=== PATIENT | female | born 1980 | race Caucasian/White ===

== ENCOUNTER → 2019-08-25 09:37 | Outpatient (CLI) | payer OTHER, SELFPAY ==
--- NOTE | 2019-08-25 | DI.US.S_ITS ---
LIMITED ULTRASOUND OF LEFT BREAST: 08/25/2019 CLINICAL: Inverted left nipple x 3 yrs with exception of /breast feeding time during that 3 yrs. Comparison is made [facility]: [facility] of the left breast retroareolar was performed on the area of interest. No discrete cystic or solid mass lesion identified in the retroareolar region. No dilated ducts identified. IMPRESSION: NEGATIVE There is no sonographic evidence of malignancy. There is no abnormality seen in the left breast in the sub-areolar region to correspond with the nipple inversion, however, clinical followup is recommended. A 1 year screening mammogram is recommended. This exam was interpreted at Station ID: [id number]. Electronically Signed By: Harpreet Morton M.D. [email or web address]/:08/25/2019 10:40:45 letter sent: Clinical Evaluation Ultrasound BI-RADS: 1 Negative
--- NOTE | 2019-08-25 | DI.MG.S_ITS ---
BILATERAL DIGITAL DIAGNOSTIC MAMMOGRAM 3D/2D: 08/25/2019 CLINICAL: Baseline exam. Inverted left nipple. No prior exams were available for comparison. The tissue of both breasts is extremely dense, which lowers the sensitivity of mammography. No significant masses, calcifications, or other findings are seen in either breast. There is partial inversion of the left nipple noted. IMPRESSION: INCOMPLETE: NEEDS ADDITIONAL IMAGING EVALUATION There is no abnormality seen in the left breast in the sub-areolar depth to correspond with the histoy of left nipple inversion, however, ultrasound is recommended. This exam was interpreted at Station ID: [id number]. NOTE: For mammograms, a report in lay terms will be sent to the patient. Approximately 15% of breast malignancies will not be visualized mammographically. In the management of a palpable breast mass, a negative mammogram must not discourage biopsy of a clinically suspicious lesion. Electronically Signed By: Harpreet Morton M.D. ddp/:08/25/2019 10:30:51 ACR BI-RADS Category 0: Incomplete [id number]
== END ==
PROVIDERS: PCP Family Medicine; Referring Provider Family Medicine; Visit Provider Family Medicine
DX: R92.8 Other abnormal and inconclusive findings on diagnostic imaging of breast (principal); N64.59 Other signs and symptoms in breast
CPT/HCPCS: 76642; 77066; G0279

== ENCOUNTER 2020-07-30 10:15 | Outpatient (RCR) | payer OTHER, SELFPAY ==
--- NOTE | 2020-07-02 14:52 | PT.OIE ---
Current Diagnoses Sacroiliitis, not elsewhere classified (07/02/20) Low back pain (07/02/20) Other muscle spasm (07/02/20) Visit Care Team Role Provider Type Judy Robert MD Attending Provider Physician Primary Care Provider Referring Provider Specialty: Family Practice Address: [address] [place] [address], [facility] [place], [address] Email: [email or web address] Therapy Initial Evaluation PT-OP-A Visit Information Start: 07/02/20 07:32 Freq: Status: Active Protocol: Document 07/02/20 12:45 AMB (Rec: 07/03/20 10:13 AMB [email or web address]) Out-Patient Physical Therapy Visit Information Visit Information Visit Type Initial Evaluation Visit Start Time 12:45 Visit Stop Time 13:35 Total Visit Minutes 50 Visit Number 1 PT-OP-B Current Condition Start: 07/02/20 07:32 Freq: Status: Active Protocol: Document 07/02/20 12:45 AMB (Rec: 07/02/20 13:11 AMB [id number]) Current Condition History of Current Condition Onset Date 2008 Current Complaints R>L low back pain into hip History of Current Condition Pain started with 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 When I have a big flare up worse on the right. , worse pain after the of her son in her low back, fine back pain during , but worse post . Sitting seems to really flare it up. Carrying around the baby did increase the pain. Mostly right sided, feels tension in right neck/ shoulder. Recently has had some numbness tingling in the right arm leg. Stretching feels good in the moment, but then it seems to worsen it. Feels like has been in a flare up for the last 9 months, but not currently painful when seated during exam. 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 Yoga has seemed to help. Walking at a decent speed also helps. Have tried massage and chiropractor and neither seemed to fix it. Treatment Goals Patient/Caregiver Goals Know what to do when has a pain flare. What can I do to avoid a pain flare. Prior Functional Status Baseline Function- ADL's Independent Baseline Function- Mobility Independent Current Functional Impairments (Reported) Functional Limitations- ADL's Avoids sitting, has to be very aware of how she lifts the kids Personal Factors Other Personal Factors That May Effect anxiety, asthma, headaches Therapy/Recovery PT-OP-C Subjective Start: 07/02/20 07:32 Freq: Status: Active Protocol: Document 07/02/20 12:45 AMB (Rec: 07/03/20 10:13 AMB [email or web address]) OP-PT Pain Assessment Pain Assessment Grid Paper Pain Assessment Grid Completed Yes Location Lower Back Pain Location Details R>L post hip Intensity 9 Scale Used Numeric (0 - 10) Variations/Patterns 0-9 depending on flare PT-OP-J Posture/Palpation/Skin Start: 07/02/20 07:32 Freq: Status: Active Protocol: Document 07/02/20 12:45 AMB (Rec: 07/03/20 10:13 AMB [email or web address]) Posture Evaluation Comments Posture Comments mildly increased lumbar lordosis Palpation Assessment Location One Palpation Location low back Palpation Details stiffness and pain with PAs T/ L junction and high lumbar spine, tenderness into pirfiormis, glut med but does not radiate PT-OP-K Range of Motion Start: 07/02/20 07:32 Freq: Status: Active Protocol: Document 07/02/20 12:45 AMB (Rec: 07/03/20 10:13 AMB [email or web address]) Lumbar Spine Range of Motion Lumbar Spine Active Degrees Testing Position Standing Flexion 50 Extension 20 Lateral Flexion Left 25 Lateral Flexion Right 25 Comments increased pain with extension, flexion feels good Hip Goniometric Range of Motion Hip Right Active Testing Position Supine Flexion w/Knee Flexed 130 PT-OP-M Strength Start: 07/02/20 07:32 Freq: Status: Active Protocol: Document 07/02/20 12:45 AMB (Rec: 07/05/20 08:14 AMB [email or web address]) Hip Strength Hip Manual Muscle Testing Left Flexion (L2) 5 Normal Extension (S1) 4 Good Abduction 5 Normal Adduction 5 Normal Right Flexion (L2) 5 Normal Extension (S1) 4 Good Abduction 5 Normal Adduction 5 Normal PT-OP-T Assessment and Plan Start: 07/02/20 07:32 Freq: Status: Active Protocol: Document 07/02/20 12:45 AMB (Rec: 07/05/20 08:14 AMB [email or web address]) Physical Therapy Assessment Rehab Potential Rehabilitation Potential Good Evaluation Complexity Number of Personal Factors/Comorbidities 1-2 Number of Body Systems Impaired 3 Clinical Presentation at Evaluation Evolving Impairments Impairments Functional Activities,ROM, Strength Goals Three Impairment Pain Short Term Goal (STG) Bree will sit for 30 minutes with pain of 4/10. STG Duration 6 weeks Mcc Goal (LTG) Bree will lift and carry her youngest child with pain of 4/10. LTG Duration 12 weeks Two Impairment Strength Short Term Goal (STG) Bree will improve her hip strength to 5/5 bilaterally in all planes. STG Duration 6 weeks Health Claims Examiner Goal (LTG) Bree will perform a full squat without an increase in pain. LTG Duration 12 weeks One Impairment ROM Short Term Goal (STG) Bree will improve her extension AROM to 25 degrees without an increase in baseline pain. STG Duration 6 weeks Assessment Summary Assessment Bree attends physical therapy with 11 year history of low back pain that radiates R>L into hips, worse with sitting. She was fairly hyperverbal during assessment, so getting physical details was challenging, but we will look further into her SI joint and piriformis mobility, and lumbar stability. She does have pain with lumbar extension. She also had a diastasis recti, which likely is not causing her pain, but could be contributing to it. Her pain is quite variable, and she has had a difficult time finding a pattern to it, but physical therapy will work on that as well, so that she can sit and avoid pain flares. Physical Therapy Plan Frequency and Duration Frequency of Treatment 1x/Week Duration of Treatment 12 weeks Plan of Care Start Date 07/02/20 Plan of Care End Date 09/24/20 Therapeutic Interventions Therapeutic Interventions Gait Training,Home Exercise Program,Joint Mobilizations, Manual Therapy,Neuromuscular Re-education,Self-Care/Home Management,Therapeutic Activities,Therapeutic Exercises Modalities Cold Pack/Ice Massage,Electric Stimulation,Hot Packs, Traction- Mechanical, Ultrasound Next Visit Focus/Plan Next Note Type Treatment Note Next Visit Plan Gluteal strengthening, review stretching program
--- NOTE | 2020-07-02 14:56 | PT.OPPOC ---
Physical, Occupational & Speech Therapy At [facility] Current Diagnoses Sacroiliitis, not elsewhere classified (07/02/20) Low back pain (07/02/20) Other muscle spasm (07/02/20) Visit Care Team Role Provider Type Judy Robert MD Attending Provider Physician Primary Care Provider Referring Provider Specialty: [facility] Address: [address] [place] [address], [facility] [place], [place], [facility] Email: [email or web address] Plan Of Care PT-OP-T Assessment and Plan Start: 07/02/20 07:32 Freq: Status: Active Protocol: Document 07/02/20 12:45 AMB (Rec: 07/05/20 08:14 AMB [email or web address]) Physical Therapy Assessment Rehab Potential Rehabilitation Potential Good Evaluation Complexity Number of Personal Factors/Comorbidities 1-2 Number of Body Systems Impaired 3 Clinical Presentation at Evaluation Evolving Impairments Impairments Functional Activities,ROM, Strength Goals Three Impairment Pain Short Term Goal (STG) Bree will sit for 30 minutes with pain of 4/10. STG Duration 6 weeks Manager Knowledge Goal (LTG) Bree will lift and carry her youngest child with pain of 4/10. LTG Duration 12 weeks Two Impairment Strength Short Term Goal (STG) Bree will improve her hip strength to 5/5 bilaterally in all planes. STG Duration 6 weeks Group Home Goal (LTG) Bree will perform a full squat without an increase in pain. LTG Duration 12 weeks One Impairment ROM Short Term Goal (STG) Bree will improve her extension AROM to 25 degrees without an increase in baseline pain. STG Duration 6 weeks Assessment Summary Assessment Bree attends physical therapy with 11 year history of low back pain that radiates R>L into hips, worse with sitting. She was fairly hyperverbal during assessment, so getting physical details was challenging, but we will look further into her SI joint and piriformis mobility, and lumbar stability. She does have pain with lumbar extension. She also had a diastasis recti, which likely is not causing her pain, but could be contributing to it. Her pain is quite variable, and she has had a difficult time finding a pattern to it, but physical therapy will work on that as well, so that she can sit and avoid pain flares. Physical Therapy Plan Frequency and Duration Frequency of Treatment 1x/Week Duration of Treatment 12 weeks Plan of Care Start Date 07/02/20 Plan of Care End Date 09/24/20 Therapeutic Interventions Therapeutic Interventions Gait Training,Home Exercise Program,Joint Mobilizations, Manual Therapy,Neuromuscular Re-education,Self-Care/Home Management,Therapeutic Activities,Therapeutic Exercises Modalities Cold Pack/Ice Massage,Electric Stimulation,Hot Packs, Traction- Mechanical, Ultrasound Next Visit Focus/Plan Next Note Type Treatment Note Next Visit Plan Gluteal strengthening, review stretching program Plan of Care Dates Plan of Care Start Date 07/02/20 Plan of Care End Date 09/24/20 Electronically Signed by: Dayanna Woods, PT 07/05/20 2005 Please Sign and Return: I have reviewed this Plan of Care and certify that the skilled therapy services above are required to meet the patient?s needs. Physician Signature Date Printed Name and Credentials Clinical Instructor Signature Printed Name and Credentials
--- NOTE | 2020-07-09 16:00 | PT.OTN ---
Current Diagnoses Sacroiliitis, not elsewhere classified (07/09/20) Low back pain (07/09/20) Other muscle spasm (07/09/20) Physical Therapy Treatment Note PT-OP-A Visit Information Start: 07/02/20 07:32 Freq: Status: Active Protocol: Document 07/09/20 13:30 AMB (Rec: 07/09/20 14:30 AMB [id number]) Out-Patient Physical Therapy Visit Information Visit Information Visit Type Treatment Note Visit Start Time 13:30 Visit Stop Time 14:15 Total Visit Minutes 45 Visit Number 2 PT-OP-B Current Condition Start: 07/02/20 07:32 Freq: Status: Active Protocol: Document 07/02/20 12:45 AMB (Rec: 07/02/20 13:11 AMB [id number]) Current Condition History of Current Condition Onset Date 2008 Current Complaints R>L low back pain into hip History of Current Condition Pain started with 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 When I have a big flare up worse on the right. , worse pain after the of her son in her low back, fine back pain during , but worse post . Sitting seems to really flare it up. Carrying around the baby did increase the pain. Mostly right sided, feels tension in right neck/ shoulder. Recently has had some numbness tingling in the right arm leg. Stretching feels good in the moment, but then it seems to worsen it. Feels like has been in a flare up for the last 9 months, but not currently painful when seated during exam. 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 Yoga has seemed to help. Walking at a decent speed also helps. Have tried massage and chiropractor and neither seemed to fix it. Treatment Goals Patient/Caregiver Goals Know what to do when has a pain flare. What can I do to avoid a pain flare. Prior Functional Status Baseline Function- ADL's Independent Baseline Function- Mobility Independent Current Functional Impairments (Reported) Functional Limitations- ADL's Avoids sitting, has to be very aware of how she lifts the kids Personal Factors Other Personal Factors That May Effect anxiety, asthma, headaches Therapy/Recovery PT-OP-C Subjective Start: 07/02/20 07:32 Freq: Status: Active Protocol: Document 07/09/20 13:30 AMB (Rec: 07/09/20 14:30 AMB [id number]) OP-PT Subjective Patient Comments Patient Comments Pt is feeling her R paraspinals more than her piriformis today. PT-OP-J Posture/Palpation/Skin Start: 07/02/20 07:32 Freq: Status: Active Protocol: Document 07/02/20 12:45 AMB (Rec: 07/03/20 10:13 AMB [email or web address]) Posture Evaluation Comments Posture Comments mildly increased lumbar lordosis Palpation Assessment Location One Palpation Location low back Palpation Details stiffness and pain with PAs T/ L junction and high lumbar spine, tenderness into pirfiormis, glut med but does not radiate PT-OP-K Range of Motion Start: 07/02/20 07:32 Freq: Status: Active Protocol: Document 07/02/20 12:45 AMB (Rec: 07/03/20 10:13 AMB [email or web address]) Lumbar Spine Range of Motion Lumbar Spine Active Degrees Testing Position Standing Flexion 50 Extension 20 Lateral Flexion Left 25 Lateral Flexion Right 25 Comments increased pain with extension, flexion feels good Hip Goniometric Range of Motion Hip Right Active Testing Position Supine Flexion w/Knee Flexed 130 PT-OP-M Strength Start: 07/02/20 07:32 Freq: Status: Active Protocol: Document 07/02/20 12:45 AMB (Rec: 07/05/20 08:14 AMB [email or web address]) Hip Strength Hip Manual Muscle Testing Left Flexion (L2) 5 Normal Extension (S1) 4 Good Abduction 5 Normal Adduction 5 Normal Right Flexion (L2) 5 Normal Extension (S1) 4 Good Abduction 5 Normal Adduction 5 Normal PT-OP-Q Treatments Start: 07/02/20 07:32 Freq: Status: Active Protocol: Document 07/09/20 13:30 AMB (Rec: 07/10/20 09:36 AMB [email or web address]) Therapeutic Exercises Supine Exercises 1 Supine Exercise Name TA engagement Comments hooklying 2 Supine Exercise Name piriformis stretch Comments 30 Sitting Exercises 1 Sitting Exercise Name QL stretch Reps/Minutes 30 Other Exercises 1 Other Exercise Name quadruped hip ER and extension Comments 2x10 Manual Therapy Treatment Taping 1 Body Location abdomen Treatment Focus diastasis Type of Tape Kinesio Tape PT-OP-T Assessment and Plan Start: 07/02/20 07:32 Freq: Status: Active Protocol: Document 07/10/20 09:36 AMB (Rec: 07/10/20 09:38 AMB [email or web address]) Physical Therapy Assessment Assessment Summary Assessment Bree is already doing a lot of exercises, worked on form with them, avoiding excessive lumbarlordosis and anterior pelvic tilt. Encouraged consistency as she has a tendnency to do a lot of exercises, and then none. Physical Therapy Plan Next Visit Focus/Plan Next Note Type Treatment Note Next Visit Plan Review diastasis taping and see if it changed R paraspinal sx
--- NOTE | 2020-07-14 13:22 | PT.OTN ---
Current Diagnoses Sacroiliitis, not elsewhere classified (07/14/20) Low back pain (07/14/20) Other muscle spasm (07/14/20) Physical Therapy Treatment Note PT-OP-A Visit Information Start: 07/02/20 07:32 Freq: Status: Active Protocol: Document 07/14/20 07:35 AMB (Rec: 07/14/20 08:17 AMB [id number]) Out-Patient Physical Therapy Visit Information Visit Information Visit Type Treatment Note Visit Start Time 07:30 Visit Stop Time 08:15 Total Visit Minutes 45 Visit Number 1 PT-OP-B Current Condition Start: 07/02/20 07:32 Freq: Status: Active Protocol: Document 07/02/20 12:45 AMB (Rec: 07/02/20 13:11 AMB [id number]) Current Condition History of Current Condition Onset Date 2008 Current Complaints R>L low back pain into hip History of Current Condition Pain started with 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 When I have a big flare up worse on the right. , worse pain after the of her son in her low back, fine back pain during , but worse post . Sitting seems to really flare it up. Carrying around the baby did increase the pain. Mostly right sided, feels tension in right neck/ shoulder. Recently has had some numbness tingling in the right arm leg. Stretching feels good in the moment, but then it seems to worsen it. Feels like has been in a flare up for the last 9 months, but not currently painful when seated during exam. 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 Yoga has seemed to help. Walking at a decent speed also helps. Have tried massage and chiropractor and neither seemed to fix it. Treatment Goals Patient/Caregiver Goals Know what to do when has a pain flare. What can I do to avoid a pain flare. Prior Functional Status Baseline Function- ADL's Independent Baseline Function- Mobility Independent Current Functional Impairments (Reported) Functional Limitations- ADL's Avoids sitting, has to be very aware of how she lifts the kids Personal Factors Other Personal Factors That May Effect anxiety, asthma, headaches Therapy/Recovery PT-OP-C Subjective Start: 07/02/20 07:32 Freq: Status: Active Protocol: Document 07/14/20 07:30 AMB (Rec: 07/14/20 13:09 AMB [id number]) OP-PT Subjective Patient Comments Patient Comments Pt continues to note piriformis has been feeling better, but is worried the pain will come back. Right sided paraspinals are still tight and painful, but generally not as bad as piriformis when it acts up. PT-OP-J Posture/Palpation/Skin Start: 07/02/20 07:32 Freq: Status: Active Protocol: Document 07/02/20 12:45 AMB (Rec: 07/03/20 10:13 AMB [email or web address]) Posture Evaluation Comments Posture Comments mildly increased lumbar lordosis Palpation Assessment Location One Palpation Location low back Palpation Details stiffness and pain with PAs T/ L junction and high lumbar spine, tenderness into pirfiormis, glut med but does not radiate PT-OP-K Range of Motion Start: 07/02/20 07:32 Freq: Status: Active Protocol: Document 07/02/20 12:45 AMB (Rec: 07/03/20 10:13 AMB [email or web address]) Lumbar Spine Range of Motion Lumbar Spine Active Degrees Testing Position Standing Flexion 50 Extension 20 Lateral Flexion Left 25 Lateral Flexion Right 25 Comments increased pain with extension, flexion feels good Hip Goniometric Range of Motion Hip Right Active Testing Position Supine Flexion w/Knee Flexed 130 PT-OP-M Strength Start: 07/02/20 07:32 Freq: Status: Active Protocol: Document 07/02/20 12:45 AMB (Rec: 07/05/20 08:14 AMB [email or web address]) Hip Strength Hip Manual Muscle Testing Left Flexion (L2) 5 Normal Extension (S1) 4 Good Abduction 5 Normal Adduction 5 Normal Right Flexion (L2) 5 Normal Extension (S1) 4 Good Abduction 5 Normal Adduction 5 Normal PT-OP-Q Treatments Start: 07/02/20 07:32 Freq: Status: Active Protocol: Document 07/14/20 07:30 AMB (Rec: 07/14/20 13:22 AMB [email or web address]) Therapeutic Exercises Supine Exercises 4 Supine Exercise Name iliopsoas stretch Comments off side of table 3 Supine Exercise Name SLR Reps/Minutes 10 Comments with TA, avoid lumbar lordosis 1 Supine Exercise Name TA engagement Comments hooklying Sitting Exercises 1 Sitting Exercise Name QL stretch Reps/Minutes 30 Other Exercises 2 Other Exercise Name deepthi pose Reps/Minutes 30x2 1 Other Exercise Name quadruped hip ER and extension Comments 2x10 Manual Therapy Treatment Soft Tissue Mobilization 1 Body Location R paraspinals Mobilization Type Myofascial Release,Sustained Pressure Intensity/Depth Superficial Body Position Prone PT-OP-T Assessment and Plan Start: 07/02/20 07:32 Freq: Status: Active Protocol: Document 07/14/20 07:30 AMB (Rec: 07/14/20 13:09 AMB [id number]) Physical Therapy Assessment Assessment Summary Assessment Pt was negative with SI testing today. Pt does fall into lumbar lordosis with more challenging ab work (even SLR about 20 degrees up). Had a bit of snapping hip with supine bicycle so encouraged hip flexor stretching. Physical Therapy Plan Next Visit Focus/Plan Next Note Type Treatment Note Next Visit Plan Review ab progression, quadruped core stabilization
--- NOTE | 2020-07-30 13:53 | PT.OTN ---
Current Diagnoses Sacroiliitis, not elsewhere classified (07/30/20) Low back pain (07/30/20) Other muscle spasm (07/30/20) Physical Therapy Treatment Note PT-OP-A Visit Information Start: 07/02/20 07:32 Freq: Status: Active Protocol: Document 07/30/20 10:15 AMB (Rec: 07/30/20 10:42 AMB [id number]) Out-Patient Physical Therapy Visit Information Visit Information Visit Type Treatment Note Visit Start Time 10:15 Visit Stop Time 11:00 Total Visit Minutes 45 Visit Number 4 PT-OP-B Current Condition Start: 07/02/20 07:32 Freq: Status: Active Protocol: Document 07/02/20 12:45 AMB (Rec: 07/02/20 13:11 AMB [id number]) Current Condition History of Current Condition Onset Date 2008 Current Complaints R>L low back pain into hip History of Current Condition Pain started with 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 When I have a big flare up worse on the right. , worse pain after the of her son in her low back, fine back pain during , but worse post . Sitting seems to really flare it up. Carrying around the baby did increase the pain. Mostly right sided, feels tension in right neck/ shoulder. Recently has had some numbness tingling in the right arm leg. Stretching feels good in the moment, but then it seems to worsen it. Feels like has been in a flare up for the last 9 months, but not currently painful when seated during exam. 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 Yoga has seemed to help. Walking at a decent speed also helps. Have tried massage and chiropractor and neither seemed to fix it. Treatment Goals Patient/Caregiver Goals Know what to do when has a pain flare. What can I do to avoid a pain flare. Prior Functional Status Baseline Function- ADL's Independent Baseline Function- Mobility Independent Current Functional Impairments (Reported) Functional Limitations- ADL's Avoids sitting, has to be very aware of how she lifts the kids Personal Factors Other Personal Factors That May Effect anxiety, asthma, headaches Therapy/Recovery PT-OP-C Subjective Start: 07/02/20 07:32 Freq: Status: Active Protocol: Document 07/30/20 10:15 AMB (Rec: 07/30/20 13:53 AMB [email or web address]) OP-PT Subjective Patient Comments Patient Comments Pt continues to not have piriformis pain. She does have right sided low back pain , and is interestedin progressing her abdominal exercises, she is also thinking about making this her last appointment, as her copay is high and she hasn't been having piriformis pain lately, so it has been hard to treat. PT-OP-J Posture/Palpation/Skin Start: 07/02/20 07:32 Freq: Status: Active Protocol: Document 07/02/20 12:45 AMB (Rec: 07/03/20 10:13 AMB [email or web address]) Posture Evaluation Comments Posture Comments mildly increased lumbar lordosis Palpation Assessment Location One Palpation Location low back Palpation Details stiffness and pain with PAs T/ L junction and high lumbar spine, tenderness into pirfiormis, glut med but does not radiate PT-OP-K Range of Motion Start: 07/02/20 07:32 Freq: Status: Active Protocol: Document 07/02/20 12:45 AMB (Rec: 07/03/20 10:13 AMB [email or web address]) Lumbar Spine Range of Motion Lumbar Spine Active Degrees Testing Position Standing Flexion 50 Extension 20 Lateral Flexion Left 25 Lateral Flexion Right 25 Comments increased pain with extension, flexion feels good Hip Goniometric Range of Motion Hip Right Active Testing Position Supine Flexion w/Knee Flexed 130 PT-OP-M Strength Start: 07/02/20 07:32 Freq: Status: Active Protocol: Document 07/02/20 12:45 AMB (Rec: 07/05/20 08:14 AMB [email or web address]) Hip Strength Hip Manual Muscle Testing Left Flexion (L2) 5 Normal Extension (S1) 4 Good Abduction 5 Normal Adduction 5 Normal Right Flexion (L2) 5 Normal Extension (S1) 4 Good Abduction 5 Normal Adduction 5 Normal PT-OP-Q Treatments Start: 07/02/20 07:32 Freq: Status: Active Protocol: Document 07/30/20 10:15 AMB (Rec: 07/30/20 13:53 AMB [email or web address]) Therapeutic Exercises Supine Exercises 5 Supine Exercise Name Double knee flex to 90 Comments coning with ab 4 Supine Exercise Name iliopsoas stretch Comments off side of table 3 Supine Exercise Name SLR Reps/Minutes 10 Comments with TA, avoid lumbar lordosis 1 Supine Exercise Name TA engagement Comments hooklying 2 Supine Exercise Name piriformis stretch Comments 30 Other Exercises 3 Other Exercise Name modified plank PT-OP-T Assessment and Plan Start: 07/02/20 07:32 Freq: Status: Active Protocol: Document 07/30/20 10:15 AMB (Rec: 07/30/20 13:53 AMB [email or web address]) Physical Therapy Assessment Assessment Summary Assessment Pt is doing well as far as her piriformis syndrome at this point. She is concerned it will come back. So we will put her on hold and she will contact this clinic if her pain does return. Pt understands that if it is more than a month or two she will need a new referral. Pt to continue with gluteal strengthening and start work on her diastasis to progress independently. Physical Therapy Plan Next Visit Focus/Plan Next Note Type Treatment Note Next Visit Plan Pt on hold
--- NOTE | 2020-09-03 15:54 | PT.OPDS ---
Current Diagnoses Sacroiliitis, not elsewhere classified (07/30/20) Low back pain (07/30/20) Other muscle spasm (07/30/20) Visit Care Team Role Provider Type Judy Robert MD Attending Provider Physician Primary Care Provider Referring Provider Specialty: Family Practice Address: [address] [place] [address], [facility] [place], [address] Email: 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 When I have a big flare up worse on the right. , worse pain after the of her son in her low back, fine back pain during , but worse post . Sitting seems to really flare it up. Carrying around the baby did increase the pain. Mostly right sided, feels tension in right neck/ shoulder. Recently has had some numbness tingling in the right arm leg. Stretching feels good in the moment, but then it seems to worsen it. Feels like has been in a flare up for the last 9 months, but not currently painful when seated during exam. 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 Yoga has seemed to help. Walking at a decent speed also helps. Have tried massage and chiropractor and neither seemed to fix it. Treatment Goals Patient/Caregiver Goals Know what to do when has a pain flare. What can I do to avoid a pain flare. Prior Functional Status Baseline Function- ADL's Independent Baseline Function- Mobility Independent Current Functional Impairments (Reported) Functional Limitations- ADL's Avoids sitting, has to be very aware of how she lifts the kids Personal Factors Other Personal Factors That May Effect anxiety, asthma, headaches Therapy/Recovery PT-OP-C Subjective Start: 07/02/20 07:32 Freq: Status: Active Protocol: Document 07/30/20 10:15 AMB (Rec: 07/30/20 13:53 AMB [email or web address]) OP-PT Subjective Patient Comments Patient Comments Pt continues to not have piriformis pain. She does have right sided low back pain , and is interestedin progressing her abdominal exercises, she is also thinking about making this her last appointment, as her copay is high and she hasn't been having piriformis pain lately, so it has been hard to treat. PT-OP-J Posture/Palpation/Skin Start: 07/02/20 07:32 Freq: Status: Active Protocol: Document 07/02/20 12:45 AMB (Rec: 07/03/20 10:13 AMB [email or web address]) Posture Evaluation Comments Posture Comments mildly increased lumbar lordosis Palpation Assessment Location One Palpation Location low back Palpation Details stiffness and pain with PAs T/ L junction and high lumbar spine, tenderness into pirfiormis, glut med but does not radiate PT-OP-K Range of Motion Start: 07/02/20 07:32 Freq: Status: Active Protocol: Document 07/02/20 12:45 AMB (Rec: 07/03/20 10:13 AMB [email or web address]) Lumbar Spine Range of Motion Lumbar Spine Active Degrees Testing Position Standing Flexion 50 Extension 20 Lateral Flexion Left 25 Lateral Flexion Right 25 Comments increased pain with extension, flexion feels good Hip Goniometric Range of Motion Hip Right Active Testing Position Supine Flexion w/Knee Flexed 130 PT-OP-M Strength Start: 07/02/20 07:32 Freq: Status: Active Protocol: Document 07/02/20 12:45 AMB (Rec: 07/05/20 08:14 AMB [email or web address]) Hip Strength Hip Manual Muscle Testing Left Flexion (L2) 5 Normal Extension (S1) 4 Good Abduction 5 Normal Adduction 5 Normal Right Flexion (L2) 5 Normal Extension (S1) 4 Good Abduction 5 Normal Adduction 5 Normal PT-OP-T Assessment and Plan Start: 07/02/20 07:32 Freq: Status: Active Protocol: Document 09/03/20 15:54 AMB (Rec: 09/03/20 15:54 AMB [email or web address]) Physical Therapy Assessment Goals Three Impairment Pain Short Term Goal (STG) Bree will sit for 30 minutes with pain of 4/10. STG Duration 6 weeks Edge Banding Off Bearer Goal (LTG) Bree will lift and carry her youngest child with pain of 4/10. LTG Duration 12 weeks Two Impairment Strength Short Term Goal (STG) Bree will improve her hip strength to 5/5 bilaterally in all planes. STG Duration 6 weeks Penitentiary Goal (LTG) Bree will perform a full squat without an increase in pain. LTG Duration 12 weeks One Impairment ROM Short Term Goal (STG) Bree will improve her extension AROM to 25 degrees without an increase in baseline pain. STG Duration 6 weeks Assessment Summary Assessment At last visit: Pt is doing well as far as her piriformis syndrome at this point. She is concerned it will come back . So we will put her on hold and she will contact this clinic if her pain does return . Pt understands that if it is more than a month or two she will need a new referral. Pt to continue with gluteal strengthening and start work on her diastasis to progress independently.
== END 2020-09-09 09:55 ==
LOC: PHYS 10:15
PROVIDERS: PCP Family Medicine; Referring Provider Family Medicine; Visit Provider Family Medicine
DX: M62.838 Other muscle spasm (principal); M54.5 Low back pain; M46.1 Sacroiliitis, not elsewhere classified
CPT/HCPCS: 97110; 97140; 97162

== ENCOUNTER → 2020-09-07 17:37 | Outpatient (CLI) | payer OTHER, SELFPAY ==
--- NOTE | 2020-09-07 | DI.MG.S_ITS ---
BILATERAL DIGITAL SCREENING MAMMOGRAM 3D/2D WITH CAD: 09/07/2020 CLINICAL: Routine screening. Comparison is made to exam dated: 08/25/2019 [facility]. The tissue of both breasts is extremely dense, which lowers the sensitivity of mammography. Current study was also evaluated with a Computer Aided Detection (CAD) system. No significant masses, calcifications, or other findings are seen in either breast. There has been no significant interval change. IMPRESSION: NEGATIVE There is no mammographic evidence of malignancy. A 1 year screening mammogram is recommended. This exam was interpreted at Station ID: [id number]. NOTE: For mammograms, a report in lay terms will be sent to the patient. Approximately 15% of breast malignancies will not be visualized mammographically. In the management of a palpable breast mass, a negative mammogram must not discourage biopsy of a clinically suspicious lesion. Electronically Signed By: Eduardo tovar/davion:09/08/2020 07:25:05 letter sent: Normal Exam ACR BI-RADS Category 1: Negative 3341F
== END ==
PROVIDERS: PCP Family Medicine; Referring Provider Family Medicine; Visit Provider Family Medicine
DX: Z12.31 Encounter for screening mammogram for malignant neoplasm of breast (principal)
CPT/HCPCS: 77063; 77067

== ENCOUNTER → 2020-09-10 10:22 | Outpatient (CLI) | payer OTHER, SELFPAY ==
[2020-09-13 09:37] LABS: Lupus Reflex Interpretation Comment: (.); PTT-LA 34.3 sec (0.0-51.9)
== END ==
PROVIDERS: PCP Family Medicine; Referring Provider Internal Medicine; Visit Provider Internal Medicine
DX: D69.6 Thrombocytopenia, unspecified (principal)
CPT/HCPCS: 36415; 85598; 85613; 85732; 86146; 86147; 86148

== ENCOUNTER → 2021-10-11 16:26 | Outpatient (CLI) | payer OTHER, SELFPAY ==
--- NOTE | 2021-10-11 | DI.MG.S_ITS ---
BILATERAL DIGITAL SCREENING MAMMOGRAM 3D/2D WITH CAD: 10/11/2021 CLINICAL: Routine screening. Comparison is made to exams dated: 09/07/2020 mammogram and 08/25/2019 mammogram - [facility]. The tissue of both breasts is extremely dense, which lowers the sensitivity of mammography. Current study was also evaluated with a Computer Aided Detection (CAD) system. There are benign calcifications in both breasts. No significant masses, calcifications, or other findings are seen in either breast. There has been no significant interval change. IMPRESSION: BENIGN There is no mammographic evidence of malignancy. A 1 year screening mammogram is recommended. This exam was interpreted at Station ID: [id number]. NOTE: For mammograms, a report in lay terms will be sent to the patient. Approximately 15% of breast malignancies will not be visualized mammographically. In the management of a palpable breast mass, a negative mammogram must not discourage biopsy of a clinically suspicious lesion. Electronically Signed By: Evelia solano/davion:10/12/2021 09:45:51 letter sent: Normal Exam ACR BI-RADS Category 2: Benign Finding(s) 3342F
== END ==
PROVIDERS: PCP Family Medicine; Referring Provider Family Medicine; Visit Provider Family Medicine
DX: Z12.31 Encounter for screening mammogram for malignant neoplasm of breast (principal)
CPT/HCPCS: 77063; 77067

== ENCOUNTER → 2022-10-28 11:05 | Outpatient (CLI) | payer OTHER, SELFPAY ==
--- NOTE | 2022-10-28 11:07 | DI.MG.S_ITS ---
BILATERAL DIGITAL SCREENING MAMMOGRAM 3D/2D WITH CAD: 10/28/2022 CLINICAL: Routine screening. Comparison is made to exams dated: 10/11/2021 mammogram, 10/11/2021 mammogram, and 09/07/2020 mammogram - [facility]. Both breasts are extremely dense, which lowers the sensitivity of mammography (category d />75% glandular tissue). Current study was also evaluated with a Computer Aided Detection (CAD) system. There are benign calcifications in both breasts. No significant masses, calcifications, or other findings are seen in either breast. There has been no significant interval change. IMPRESSION: BENIGN There is no mammographic evidence of malignancy. A 1 year screening mammogram is recommended. Based on Tyrer-Cuzick model (a risk assessment model), the patient's lifetime risk is 22.6% and her 10 year risk is 3.5%. If a patient has an elevated risk, a more comprehensive evaluation should be considered and/or a referral to a genetic counselor. The [place] [employer], [employer], and NCCN Guidelines advise the consideration of Breast MRI as an adjunct to screening mammography in patients whose Lifetime risk to develop breast cancer is 20% or higher. This exam was interpreted at Station ID: [id number]. NOTE: For mammograms, a report in lay terms will be sent to the patient. Approximately 15% of breast malignancies will not be visualized mammographically. In the management of a palpable breast mass, a negative mammogram must not discourage biopsy of a clinically suspicious lesion. Electronically Signed By: Evelia solano/davion:10/30/2022 08:42:55 letter sent: Normal Exam ACR BI-RADS Category 2: Benign Finding(s) 3342F
== END ==
PROVIDERS: PCP Family Medicine; Referring Provider Family Medicine; Visit Provider Family Medicine
DX: Z12.31 Encounter for screening mammogram for malignant neoplasm of breast (principal)
CPT/HCPCS: 77063; 77067

== ENCOUNTER → 2023-11-12 16:04 | Outpatient (CLI) | payer OTHER, SELFPAY ==
--- NOTE | 2023-11-12 16:06 | DI.MG.S_ITS ---
BILATERAL DIGITAL SCREENING MAMMOGRAM 3D/2D WITH CAD: 11/12/2023 CLINICAL: Routine screening. Comparison is made to exams dated: 10/28/2022 mammogram, 10/11/2021 mammogram, 09/07/2020 mammogram, and 08/25/2019 mammogram - [facility]. Both breasts are extremely dense, which lowers the sensitivity of mammography (category d />75% glandular tissue). Current study was also evaluated with a Computer Aided Detection (CAD) system. There are benign calcifications in both breasts. No significant masses, calcifications, or other findings are seen in either breast. There has been no significant interval change. IMPRESSION: BENIGN There is no mammographic evidence of malignancy. A 1 year screening mammogram is recommended. Based on Tyrer-Cuzick model (a risk assessment model), the patient's lifetime risk is 22.5% and her 10 year risk is 3.8%. If a patient has an elevated risk, a more comprehensive evaluation should be considered and/or a referral to a genetic counselor. The [place] [employer], [employer] [employer], and NCCN Guidelines advise the consideration of Breast MRI as an adjunct to screening mammography in patients whose Lifetime risk to develop breast cancer is 20% or higher. This exam was interpreted at Station ID: [id number]. NOTE: For mammograms, a report in lay terms will be sent to the patient. Approximately 15% of breast malignancies will not be visualized mammographically. In the management of a palpable breast mass, a negative mammogram must not discourage biopsy of a clinically suspicious lesion. Electronically Signed By: Rizwan noyola/davion:11/13/2023 10:11:14 letter sent: Normal Exam ACR BI-RADS Category 2: Benign Finding(s) 3342F
== END ==
PROVIDERS: PCP Family Medicine; Referring Provider Family Medicine; Visit Provider Family Medicine
DX: Z12.31 Encounter for screening mammogram for malignant neoplasm of breast (principal); R92.343 Mammographic extreme density, bilateral breasts
CPT/HCPCS: 77063; 77067

== ENCOUNTER → 2024-09-30 15:18 | Outpatient (CLI) | payer OTHER, SELFPAY ==
--- NOTE | 2024-09-30 15:20 | DI.MRI.S_ITS ---
MR breast BI wo/w con: 09/30/2024. BI-RADS: 1 CLINICAL: 44-year old female for bilateral diagnostic breast MRI. No personal or first-degree family history of breast cancer. The patient reports chronic left nipple inversion. PRIOR EXAMS 11/12/2023, 10/28/2022, 10/11/2021, 09/07/2020, 08/25/2019. MRI TECHNIQUE Bilateral breast MRI was performed on a 1.5 Rosalina magnet using a dedicated breast coil with mild compression. Axial T1 and T2 STIR sequences were obtained. Dynamic contrast enhanced VIBRANT fat-suppressed sequences were obtained. Delayed sagittal high resolution or sagittal reconstructed isotropic sequence was also obtained. Subtraction images and maximum intensity projection images were obtained. The study was evaluated using [employer] software. Gadavist was injected intravenously. FIBROGLANDULAR TISSUE Bilateral: D. Extreme fibroglandular tissue. BACKGROUND PARENCHYMAL ENHANCEMENT Bilateral: Marked symmetrical background parenchymal enhancement. BREAST FINDINGS Bilateral: No suspicious mass, suspicious non-mass enhancement, or other concerning finding identified. ABDOMEN FINDINGS There is a non-enhancing, T2 hyperintense structure in the right hepatic lobe favored to represent hepatic cyst. IMPRESSION: * No evidence of malignancy. OVERALL ASSESSMENT CATEGORY BI-RADS-1: Negative. ELECTRONICALLY SIGNED: Reina Reed M.D. on 10/03/2024 at 01:26:54 AM PT Interpreting Station ID: [id number]
== END ==
PROVIDERS: PCP Family Medicine; Referring Provider Family Medicine; Visit Provider Family Medicine
DX: R92.323 Mammographic fibroglandular density, bilateral breasts (principal); N64.59 Other signs and symptoms in breast
CPT/HCPCS: 77049; A9579

== ENCOUNTER 2025-04-16 13:36 | Emergency (ER) | payer OTHER, SELFPAY ==
[2025-04-16 13:44] VITALS: BP 109/64; PULSE 67; RESP 16; TEMP 36.6; O2SAT 98; BMI 22.8
--- NOTE | 2025-04-16 13:56 | DI.RAD.S_ITS ---
PROCEDURE: XR WRIST RT MIN 3V INDICATIONS: fall, wrist injury w/ laceration TECHNIQUE: 4 views of the wrist were acquired. COMPARISON: None. FINDINGS: Bones: No fractures or dislocations. No navicular fractures are seen. No suspicious bony lesions. Soft tissues: No suspicious soft tissue calcifications. IMPRESSION: No displaced fractures are seen. If there is snuffbox tenderness (or other clinical suspicion for a fracture not seen on these images) then a repeat examination would be recommended in 10 to 14 days, following splinting. Dictated by: Hemant Xiong M.D. on 04/16/2025 at 13:42 Approved by: Hemant Xiong M.D. on 04/16/2025 at 13:43
--- NOTE | 2025-04-16 14:37 | ED_ITS ---
HPI - Wound/Laceration <Jessica Gomez PA-C - Last Filed: 04/16/25 16:35> General Chief Complaint: Wound/Laceration Stated Complaint: Fell, hit left eye and right wrist Time Seen by Provider: 04/16/25 14:37 Source: patient Mode of arrival: Family Vehicle History of Present Illness HPI narrative: Ms. Rhodes is a pleasant 45-year-old female with a past medical history of thrombocytopenia, asthma who presents to the emergency department for a laceration to her right wrist and left eyebrow after a fall that occurred earlier today. TDap 8 years ago. There was no loss of consciousness and she is not on blood thinners. Patient states that she was standing on a stool in her garage when she attempted to get off the stool but fell. Majority of her weight landed on the right wrist which hit the stool however her left eyebrow also hit the stool. She now has an irregular laceration of the dorsal aspect of the right wrist associated with the pain, and a small laceration just below the left eyebrow with associated swelling. She denies any neck pain, back pain, trunk pain, left upper extremity pain or lower extremity pain. Bleeding is controlled. No dizziness, lightheadedness, nausea, vomiting, visual di sturbance. Related Data Home Medications ?Medication ?Instructions ?Recorded ?Confirmed albuterol sulfate 90 mcg/actuation 2 puff INH ##0 04/2304/02/22 aerosol inhaler (Ventolin HFA) acyclovir 200 mg capsule 200 mg PO DAILY 09/07/2006/13 citalopram 10 mg tablet 10 mg PO DAILY 09/07/2003/23 fluticasone propionate 50 1 spray intranasal DAILY 04/1204/02/22 mcg/actuation nasal spray,suspension ketotifen fumarate 0.025 % (0.035 drp ophthalmic (eye) 09/28/20 04/02/22 %) eye drops (Zaditor) Previous Rx's ?Medication ?Instructions ?Recorded ibuprofen 600 mg tablet 600 mg PO Q6HP PRN #30 tabs 10/31/17 benzonatate 100 mg capsule 100 mg PO BID PRN cough #20 caps 04/02/22 cyclobenzaprine 5 mg tablet 5 mg PO TID PRN muscle spa sm #20 07/06/22 tabs Allergies Allergy/AdvReac Type Severity Reaction Status Date / Time Penicillins (PENICILLINS) Allergy Unknown Unverified 04/16/25 13:44 Review of Systems <Jessica Gomez PA-C - Last Filed: 04/16/25 16:35> Review of Systems ROS Unobtainable: All systems reviewed & are unremarkable except as noted in HPI and below Exam <Jessica Gomez PA-C - Last Filed: 04/16/25 16:35> Narrative Exam Narrative: GENERAL: 45 year old patient appears stated age. Well-developed patient, in no acute distress. HEAD: Normocephalic. No scalp wounds or tenderness. EYES: PERRL. Extraocular motions intact. No scleral icterus. No injection or drainage. There is a 1 cm linear well-approximated laceration just below the left eyebrow with some surrounding edema. ENT: Pearly bobby TMs clear ear canals bilaterally. No hemotympanum or figueroa sign. Nose without bleeding, purulent drainage. Throat without erythema, tonsillar hypertrophy or exudate. Airway patent. NECK: Trachea midline. Cervical ROM intact. No midline tenderness. CARDIOVASCULAR: Regular rate and rhythm. RESPIRATORY: ?Nonlabored respirations. ?Speaking in clear, full sentences. ?Clear to auscultation. Breath sounds equal bilaterally. No wheezes, rales, or rhonchi. ? EXTREMITIES: 4 cm irregular laceration of the dorsal aspect of the right wrist. No active bleeding. No snuffbox tenderness or medial or lateral wrist tenderness. No pain with flexion/extension, pronation or supination. 2+ radial pulses bilaterally and sensation and strength intact in the distribution of median, radial, ulnar nerves bilaterally. BACK: Nontender. NEURO: AOx3. ?Clear speech. ?Moves all 4 extremities appropriately. SKIN: Dorsal right wrist laceration and left eyebrow laceration described above. Initial Vital Signs Initial Vital Signs: Vital Signs Temperature 97.9 F 04/16/25 13:44 Pulse Rate 67 04/16/25 13:44 Respiratory Rate 16 04/16/25 13:44 Blood Pressure 109/64 04/16/25 13:44 Pulse Oximetry 98 04/16/25 13:44 Oxygen Delivery Method Room Air 04/16/25 13:44 <Alberto Thurston MD - Last Filed: 04/17/25 12:05> Initial Vital Signs Initial Vital Signs: Vital Signs Temperature 97.9 F 04/16/25 13:44 Pulse Rate 67 04/16/25 13:44 Respiratory Rate 16 04/16/25 13:44 Blood Pressure 109/64 04/16/25 13:44 Pulse Oximetry 98 04/16/25 13:44 Oxygen Delivery Method Room Air 04/16/25 13:44 Procedures <Jessica Gomez PA-C - Last Filed: 04/16/25 16:35> Laceration Repair Laceration 1: Site: face (below eyebrow) Side (If applicable): left Size (cm): 1 Description: linear Depth: simple, single layer Local Anesthetic: other anesthetic (none) Pre-repair: wound explored, irrigated extensively and deep structures intact Skin layer closed with: dermabond Laceration 2: Site: upper extremity (dorsal right wrist ) Side (If applicable): right Size (cm): 4 Description: flap and irregular Depth: simple, single layer Local Anesthetic: lidocaine 1% and with epi Amount of anesthesia used (mL): 5 Pre-repair: wound explored, irrigated extensively and deep structures intact Skin layer closed with: nylon Skin layer suture size: 4-0 Number of sutures: 6 Technique: simple, interrupted Scores <JOHAN Aguirre Last Filed: 04/16/25 16:35> [place] CT Head Rule Age <16 years old: No Patient on blood thinners: No Seizure after injury: No Exclusion: Patient NOT Excluded, Proceed to next steps GCS < 15 at 2 hr post trauma: No Suspected open or depressed skull fracture: No Any sign of basilar skull fracture (hemotympanum, raccoon eyes, Figueroa's sign, CSF chau-/rhinorrhea): No Two or more episodes of vomiting: No Age greater or equal to 65 years: No Retrograde amnesia to the event greater or equal to 30 min: No Dangerous Mechanism (pedestrian vs. mv, occupant ejected from mv, fall from >3 ft or > 5 stairs): No Recommendation: CT unnecessary <Alberto Thurston MD - Last Filed: 04/17/25 12:05> Scottish CT Head Rule Exclusion: Patient NOT Excluded, Proceed to next steps Recommendation: CT unnecessary Course <JOHAN Aguirre Last Filed: 04/16/25 16:35> Orders Ordered: Discontinued Medications Acetaminophen (Acetaminophen 325 Mg Tablet) 975 mg PO NOW ONE Stop: 04/16/25 15:00 Last Admin: 04/16/25 15:10 Dose: 975 mg Documented By: MISSY Bacitracin (Bacitracin Oint 0.9 Gm Pckt) 1 applic TOP NOW ONE Stop: 04/16/25 15:00 Last Admin: 04/16/25 15:09 Dose: 1 applic Documented By: MISSY Diphtheria/Tetanus/Acell Pertussis (Tet,Diph,Pertuss(Acell),Vac/Pf 0.5 Ml Syringe) 0.5 ml IM .ONCE ONE Stop: 04/16/25 15:00 Last Admin: 04/16/25 15:09 Dose: 0.5 ml Documented By: MISSY Lidocaine/Epinephrine (Lidocaine 1% W/Epi 10ml) 5 ml SUBCUT NOW ONE Stop: 04/16/25 15:00 Last Admin: 04/16/25 15:09 Dose: 5 ml Documented By: MISSY Vital Signs Vital signs: Vital Signs - 8 hr 04/16/25 13:44 Temperature 97.9 F Pulse Rate 67 Respiratory Rate 16 Blood Pressure 109/64 Pulse Oximetry 98 Oxygen Delivery Method Room Air <Alberto Thurston MD - Last Filed: 04/17/25 12:05> Orders Ordered: Discontinued Medications Acetaminophen (Acetaminophen 325 Mg Tablet) 975 mg PO NOW ONE Stop: 04/16/25 15:00 Last Admin: 04/16/25 15:10 Dose: 975 mg Documented By: MISSY Bacitracin (Bacitracin Oint 0.9 Gm Pckt) 1 applic TOP NOW ONE Stop: 04/16/25 15:00 Last Admin: 04/16/25 15:09 Dose: 1 applic Documented By: MISSY Diphtheria/Tetanus/Acell Pertussis (Tet,Diph,Pertuss(Acell),Vac/Pf 0.5 Ml Syringe) 0.5 ml IM .ONCE ONE Stop: 04/16/25 15:00 Last Admin: 04/16/25 15:09 Dose: 0.5 ml Documented By: MISSY Lidocaine/Epinephrine (Lidocaine 1% W/Epi 10ml) 5 ml SUBCUT NOW ONE Stop: 04/16/25 15:00 Last Admin: 04/16/25 15:09 Dose: 5 ml Documented By: MISSY Vital Signs Vital signs: Vital Signs - 8 hr 04/16/25 13:44 Temperature 97.9 F Pulse Rate 67 Respiratory Rate 16 Blood Pressure 109/64 Pulse Oximetry 98 Oxygen Delivery Method Room Air MDM - Wound/Laceration <Jessica Gomez PA-C - Last Filed: 04/16/25 16:35> Medical Records Attestation: I reviewed the patient's medical records. Imaging Data Right Wrist XR: Radiologist's Impression: PROCEDURE: XR WRIST RT MIN 3V INDICATIONS: fall, wrist injury w/ laceration TECHNIQUE: 4 views of the wrist were acquired. COMPARISON: None. FINDINGS: Bones: No fractures or dislocations. No navicular fractures are seen. No suspicious bony lesions. Soft tissues: No suspicious soft tissue calcifications. IMPRESSION: No displaced fractures are seen. If there is snuffbox tenderness (or other clinical suspicion for a fracture not seen on these images) then a repeat examination would be recommended in 10 to 14 days, following splinting. Dictated by: Hemant Xiong M.D. on 04/16/2025 at 13:42 Approved by: Hemant Xiong M.D. on 04/16/2025 at 13:43 [facility] Narrative Medical decision making narrative: 45-year-old female with a past medical history of thrombocytopenia, asthma who presents to the emergency department for a laceration to her right wrist and left eyebrow after a fall that occurred earlier today. Differential diagnosis includes but is not limited to closed head injury, laceration, sprain, strain, fracture, etc. On exam patient is in no acute distress, nontoxic appearing, vital signs within normal limits. She has a very small superficial laceration just below the left eyebrow and a larger more irregular laceration of the dorsal aspect of the right wrist. Bleeding is controlled. Hands are neurovascularly intact. Full range of motion of the wrist. We will update Tdap, x-ray right wrist obtained in triage. Patient is agreeable to proceed with repair of wounds. Scottish head CT rule negative. Right wrist x-ray negative. Patient's right dorsal wrist laceration was anesthetized, irrigated, cleansed, repaired using 6 simple interrupted sutures. Bacitracin and a nonadherent dressing was applied followed by an John wrap for the wrist. Recommended suture removal in 7-10 days, proper wound care, signs and symptoms of infection and ER return precautions. Laceration on the left eyebrow was cleansed irrigated and repaired using Dermabond. Discussed supportive care with the patient, wound care, ER return precautions. She verbalized understanding of all information is agreeable with the plan. She is ambulatory and stable for discharge home. Discharge Plan Departure Patient Disposition: Home Clinical Impression: Fall Qualifiers: Encounter type: initial encounter Qualified Code(s): W19.XXXA - Unspecified fall, initial encounter Laceration of right wrist Qualifiers: Encounter type: initial encounter Qualified Code(s): S61.511A - Laceration without foreign body of right wrist, initial encounter Laceration of eyebrow, left Qualifiers: Encounter type: initial encounter Qualified Code(s): S01.112A - Laceration without foreign body of left eyelid and periocular area, initial encounter Instructions: DI for Laceration Repair Activity Restrictions/Additional Instructions: Dear Ms. Rhodes, Thank you for coming to the emergency department. Today you were evaluated for injury sustained after a fall. The x-ray of your right wrist did not reveal any bony abnormalities. Today you had a laceration to your right wrist. We have placed 6 sutures. They need to be removed in 7-10 days. You may do this in your doctor's office, the [id number], or here if necessary. Please keep the dressing on your wound clean, dry, and intact for the next 24 hours. After this time, you may remove the dressing and gently clean the wound with soap and water, then pat dry. Keep the wound clean and covered. Avoid soaking the wound in any water such as a bath, pool, or the ocean. If you develop any signs of wound infection such as increased redness, pus drainage, streaking redness, or fevers, please return to the ER immediately for evaluation. Once sutures are removed and the wound has healed, apply sunscreen daily to reduce the appearance of scars. We updated your tetanus shot today. For the left eyebrow laceration repaired using Dermabond/skin glue, please avoid putting any ointments or creams over top of this as it may break down the adhesive. Avoid picking or peeling off the adhesive, it will come off on its own in the next 1-2 weeks. Please use RICE therapy for your pain in addition to ibuprofen/acetaminophen. Rest the painful area. Ice the area of pain/swelling for at least 15 minutes, 4x a day. Compress the area of swelling using a brace, wrap, or splint if applied. Elevate the painful or swollen extremity by supporting it above the level of the heart with pillows when sitting or laying. Please follow up with your primary care doctor within the next 2-3 days for ER follow-up. (If you do not have a PCP you can call [phone]. ?to schedule an appointment with an [facility] Primary Care Provider) IF YOU DEVELOP ANY NEW OR WORSENING SYMPTOMS, RETURN TO THE ER! Please read the attached instructions, they highlight more specific treatments and interventions for you at home. Thank you for letting me participate in your care, Jessica Gomez PA-C Prescriptions: No Action benzonatate 100 mg capsule 100 mg PO BID PRN (Reason: cough) Qty: 20 0RF cyclobenzaprine 5 mg tablet 5 mg PO TID PRN (Reason: muscle spasm) Qty: 20 0RF albuterol sulfate [Ventolin HFA] 90 MCG/PUFF HFA aerosol inhaler 2 puff INH Qty: 0 ibuprofen 600 MG tablet 600 mg PO Q6HP PRNQty: 30 0RF citalopram 10 mg Tablet 10 mg PO DAILY acyclovir 200 mg Capsule 200 mg PO DAILY ketotifen fumarate [Zaditor] 0.025 % (0.035 %) Drops OPHTHALMIC (EYE) fluticasone propionate [Flonase] 50 mcg/actuation [place],Suspension 1 spray INTRANASAL DAILY Referrals: Judy Robert MD [Primary Care Provider, Family Practice] Stand Alone Forms: Patient Portal/API ED Sign-out <Alberto Thurston MD - Last Filed: 04/17/25 12:05> Cosign ED Attending Coslatoyaature Attestation: I was immediately available in the department for consultation. ?This documentation has been reviewed and I agree with assessment and plan. Supervised by Alberto Thurston MD
[2025-04-16] MEDS: LIDOCAINE 1% W/EPI 10ML 5 ML SUBCUT (15:09)
[2025-04-16] MEDS: BACITRACIN OINT 0.9 GM PCKT 1 APPLIC TOP (15:09)
[2025-04-16] MEDS: TET,DIPH,PERTUSS(ACELL),VAC/PF 0.5 ML SYRINGE IM (15:09)
[2025-04-16] MEDS: ACETAMINOPHEN 325 MG TABLET 975 MG PO (15:10)
[2025-04-16 16:34] VITALS: BP 108/64; PULSE 65; RESP 16; O2SAT 100
== END 2025-04-16 16:34 | disposition home or self-care (01) ==
PROVIDERS: Emergency Provider Physician Assistant; PCP Family Medicine
DX: S61.511A Laceration without foreign body of right wrist, initial encounter (principal); S01.112A Laceration without foreign body of left eyelid and periocular area, initial encounter; W08.XXXA Fall from other furniture, initial encounter; Z23 Encounter for immunization
CPT/HCPCS: 12002; 12011; 73110; 90471; 99283; 99284; 90715

== ENCOUNTER 2025-04-24 06:49 | Emergency (ER) | payer OTHER, SELFPAY ==
[2025-04-24 06:58] VITALS: BP 105/55; PULSE 65; RESP 16; TEMP 36.8; O2SAT 98; BMI 23.8
--- NOTE | 2025-04-24 07:01 | ED.RECABL ---
HPI - Recheck/Abnormal Lab/Rx General Chief Complaint: Recheck/Abnormal Lab/Rx Stated Complaint: Needs stitches on right hand removed Time Seen by Provider: 04/24/25 06:56 Source: patient Mode of arrival: Ambulatory History of Present Illness HPI narrative: 45-year-old female presents for suture removal. Sutures were placed here in this emergency department after follow up of the stool and injured her right hand. Reports things have been healing well. He has not noticed any significant redness fever or pain. She has normal range of motion of her wrist and hand. No concerns today. Reports tetanus was updated at prior visit Related Data Home Medications ?Medication ?Instructions ?Recorded ?Confirmed albuterol sulfate 90 mcg/actuation 2 puff INH ##0 05/16/17 04/02/22 aerosol inhaler (Ventolin HFA) acyclovir 200 mg capsule 200 mg PO DAILY 09/07/20 04/02/22 citalopram 10 mg tablet 10 mg PO DAILY 09/07/20 04/02/22 fluticasone propionate 50 1 spray intranasal DAILY 09/28/20 04/02/22 mcg/actuation nasal spray,suspension ketotifen fumarate 0.025 % (0.035 drp ophthalmic (eye) 09/28/20 04/02/22 %) eye drops (Zaditor) Previous Rx's ?Medication ?Instructions ?Recorded ibuprofen 600 mg tablet 600 mg PO Q6HP PRN #30 tabs 10/31/17 benzonatate 100 mg capsule 100 mg PO BID PRN cough #20 caps 04/02/22 cyclobenzaprine 5 mg tablet 5 mg PO TID PRN muscle spasm #20 07/06/22 tabs Allergies Allergy/AdvReac Type Severity Reaction Status Date / Time Penicillins (PENICILLINS) Allergy Unknown Unverified 04/24/25 06:58 Review of Systems Review of Systems Narrative: Pertinent ROS obtained and negative except as stated in HPI Patient History Smoking Status: Never smoker Exam Initial Vital Signs Initial Vital Signs: Vital Signs Temperature 98.3 F 04/24/25 06:58 Pulse Rate 65 04/24/25 06:58 Respiratory Rate 16 04/24/25 06:58 Blood Pressure 105/55 L 04/24/25 06:58 Pulse Oximetry 98 04/24/25 06:58 Oxygen Delivery Method Room Air 04/24/25 06:58 Constitutional: Well appearing, no acute distress Head: NCAT Cardiovascular: normal rate, appears well perfused Pulmonary: normal effort Extremities: No LE edema Skin: warm and dry. Over the dorsum of the right hand there is a well-healed curvilinear wound with [address] Neurological: Alert Course Vital Signs Vital signs: Vital Signs - 8 hr 04/24/25 06:58 Temperature 98.3 F Pulse Rate 65 Respiratory Rate 16 Blood Pressure 105/55 L Pulse Oximetry 98 Oxygen Delivery Method Room Air MDM - Recheck/Abnormal Lab/Rx MDM Narrative Medical decision making narrative: Sutures removed by myself at the bedside. Six sutures were removed. Looks like they were placed 04/16 making today day 8. Wound is well healed, clean dry intact. We discuss further wound care at home. All questions answered prior to discharge. Return precautions discussed and provided prior to discharge Discharge Plan Departure Patient Disposition: Home Clinical Impression: Encounter for removal of sutures Instructions: DI for Suture Removal Prescriptions: No Action benzonatate 100 mg capsule 100 mg PO BID PRN (Reason: cough) Qty: 20 0RF cyclobenzaprine 5 mg tablet 5 mg PO TID PRN (Reason: muscle spasm) Qty: 20 0RF albuterol sulfate [Ventolin HFA] 90 MCG/PUFF HFA aerosol inhaler 2 puff INH Qty: 0 ibuprofen 600 MG tablet 600 mg PO Q6HP PRNQty: 30 0RF citalopram 10 mg Tablet 10 mg PO DAILY acyclovir 200 mg Capsule 200 mg PO DAILY ketotifen fumarate [Zaditor] 0.025 % (0.035 %) Drops OPHTHALMIC (EYE) fluticasone propionate [Flonase] 50 mcg/actuation [place],Suspension 1 spray INTRANASAL DAILY Referrals: Judy Robert MD [Primary Care Provider, Family Practice] Stand Alone Forms: Patient Portal/API
== END 2025-04-24 07:04 | disposition home or self-care (01) ==
PROVIDERS: Emergency Provider Student in an Organized Health Care Education/Training Program; PCP Family Medicine
CPT/HCPCS: 99281